=== PATIENT | male | born 1970 | race Caucasian/White ===

== ENCOUNTER 2018-07-28 17:58 | Emergency (ER) | payer BC ==
[2018-07-28 18:20] VITALS: BP 120/83
[2018-07-28] MEDS ORDERED: Fluorescein Sod TOPICAL 0.6* 0.6 MG TEST OPHTHALMIC ONE (19:17)
[2018-07-28] MEDS ORDERED: Tetracaine 0.5% OPTH.SOL 15ML* BTL LEFT EYE ONE (19:17)
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
[2018-07-28] MEDS ORDERED: Tetracaine 0.5% OPTH.SOL 4 ML* 1 DROP BTL ONE (19:29)
[2018-07-28] MEDS ORDERED: Tobramycin 0.3% OPHTH.SOL* 5 ML BOT (regular eye drops) LEFT EYE ONE (19:40)
== END 2018-07-28 19:56 | disposition home or self-care (01) ==
LOC: UCEAST 17:58
DX: H16.9 Unspecified keratitis (principal); Z87.891 Personal history of nicotine dependence
CPT/HCPCS: 99212; A9270-GY; G0463

== ENCOUNTER 2019-01-19 11:48 | Emergency (ER) | payer BC ==
[2019-01-19] MEDS ORDERED: Aspirin 81 mg CHEW TAB* 81 MG TAB.CHEW PO ONE (12:00)
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
[2019-01-19 12:16] LABS: ABS Basophils 0 10^3/ul (0-0.2); ABS Eosinophils 0 10^3/ul (0-0.6); ABS Lymphocytes 1.4 10^3/ul (1.0-4.8); ABS Monocytes 0.4 10^3/ul (0-0.8); ABS Neutrophils 2.7 10^3/ul (1.5-7.7); ABS Nucleated RBC 0 10^3/ul; Eosinophil % 0.8 %; Hematocrit 46 % (36-46); Hemoglobin 15.7 g/dL (14.0-18.0); Lymphocyte % 31.1 %; Mean Corpuscular HGB Conc 34 g/dL (31-36); Mean Corpuscular Hemoglobin 30 pg (27-31); Mean Corpuscular Volume 88 fL (80-94); Mean Platelet Volume 8.6 fL (7.4-10.4); Nucleated Red Blood Cells % 0.1; Platelet Count 193 10^3/uL (150-450); Red Blood Count 5.22 10^6 /uL (4.18-5.48); Red Cell Distribution Width 13 % (10.5-15); White Blood Count 4.6 10^3/uL (3.5-10.8)
[2019-01-19 12:33] LABS: Albumin 4.4 g/dL (3.2-5.2); Albumin/Globulin Ratio 1.9 (1-3); BUN/Creatinine Ratio 23.2 (8-20); Calcium 9.1 mg/dL (8.6-10.3); EGFR African American 121.9 (>60); EGFR Non-African American 100.7 (>60); Globulin 2.3 g/dL (2-4); Magnesium 2.2 mg/dL (1.9-2.7); Potassium 3.7 mmol/L (3.5-5.0); Total Bilirubin 0.7 mg/dL (0.2-1.0); Total Protein 6.7 g/dL (6.4-8.9)
[2019-01-19] MEDS ORDERED: Ketorolac INJ* 30 MG/ML 1 ML VIAL IV PUSH ONE (13:01)
[2019-01-19 13:30] LABS: TSH (Thyroid Stimulating Horm) 1.75 mcIU/mL (0.34-5.60)
[2019-01-19 15:12] LABS: Urine Appearance Clear; Urine Bilirubin Negative (Negative); Urine Blood Negative (Negative); Urine Color Yellow; Urine Glucose Negative (Negative); Urine Ketones Negative (Negative); Urine Nitrite Negative (Negative); Urine Protein Negative (Negative); Urine Specific Gravity 1.013 (1.010-1.030); Urine Urobilinogen Negative (Negative)
[2019-01-19 15:42] VITALS: BP 116/66
[2019-01-21 12:53] LABS: HDL Cholesterol 51.9 mg/dL
== END 2019-01-19 15:42 | disposition home or self-care (01) ==
LOC: ED 11:48
DX: R07.89 Other chest pain (principal); R06.2 Wheezing; Z87.891 Personal history of nicotine dependence
CPT/HCPCS: 36415; 71045; 80053; 80061; 81003; 82550; 82553; 83036; 83605; 83735; 83880; 84443; 84484; 85025; 85379; 93005; 96374; 99283; A9270-GY; J1885